=== PATIENT | female | born 1950 | race Caucasian/White ===

== ENCOUNTER 2016-06-22 13:13 | Inpatient (IN) | payer MEDICARE, MEDICAID ==
[~2016-06-22] VITALS: Ht 172.7 cm; Wt 73.9 kg
[~2016-06-22 13:13] MED LIST: ASPI1TAB69 PO; ATOR40TA16 PO; CARV12.52 PO; FURO40TA PO; LISI-515 PO; MIRA25TA PO; NAPR500T PO; POTA-163 PO
[2016-06-23] MEDS ORDERED: VITA10007 PO (08:57)
[2016-06-23] MEDS ORDERED: OMEG5CAP PO (08:57)
[2016-06-23] MEDS ORDERED: GLUC100017 PO (08:57)
[2016-06-23] MEDS ORDERED: CALC500T35 PO (08:57)
[2016-06-23] MEDS ORDERED: ZINC50TA PO (08:59)
[2016-06-23] MEDS ORDERED: MULT1TAB84 PO (08:59)
[2016-06-23] MEDS ORDERED: VITA10002 PO (08:59)
[2016-06-23] MEDS ORDERED: TYLE650T9 PO (08:59)
[2016-07-06] MEDS ORDERED: VANCOMYCIN HCL 1000 MG VIAL ONE (05:45)
[2016-07-06] MEDS ORDERED: SODIUM CHLOR 0.9% 250 ML INJ 250 ML ONE (05:45)
[2016-07-06 06:04] VITALS: BP 107/64; PULSE 58; RESP 20; TEMP 97.8; O2SAT 100
[2016-07-06] MEDS ORDERED: SODIUM CHLORID 0.9% 500 ML IV PRN (06:30)
[2016-07-06] MEDS ORDERED: INSULIN HUMAN REGULAR 1,000 UNITS/10 ML VIAL SQ PRN (06:30)
[2016-07-06] MEDS ORDERED: ceFAZolin 2 GM PREMIX 50 ML IV SCH (06:30)
[2016-07-06] MEDS ORDERED: METOPROLOL TARTRATE 25 MG TAB PO PRN (06:30)
[2016-07-06] MEDS ORDERED: POVIDONE IODINE 5% (ANTISEPSIS KIT) 4 APPLICATIONS EACH NARE PRN (06:30)
[2016-07-06] MEDS ORDERED: CHLORHEXIDINE GLUCONATE 2 % 1 PACK (2 CLOTHS) TOPICAL PRN (06:30)
[2016-07-06] MEDS ORDERED: VANCOMYCIN 1000 MG/NS 250 ML (for <70 kg) IV SCH ×2 (06:30)
[2016-07-06] MEDS ORDERED: LACTATED RINGER'S 1000 ML IV PRN (06:30)
[2016-07-06] MEDS ORDERED: GENTAMICIN SULFATE 80 MG/2 ML VIAL ONE (07:16)
[2016-07-06] MEDS ORDERED: EXPAREL PERI-ARTICULAR INJECTION (TOTAL VOL. 60 ML) P-ARTICULR SCH ×2 (07:30)
[2016-07-06] MEDS ORDERED: SODIUM CHLORIDE 0.9% IV SCH (07:30)
[2016-07-06] MEDS ORDERED: TRANEXAMIC ACID IV SCH (07:30)
[2016-07-06] MEDS ORDERED: HYDR-3366 PO (08:13)
[2016-07-06] MEDS ORDERED: WALKER/ADULT/FO1 MIS (08:13)
[2016-07-06] MEDS ORDERED: XARE10TA PO (08:13)
[2016-07-06] MEDS: LACTATED RINGER'S 1000 ML INJ 1,000 ML IV SCH ×2 (09:49→23:13)
--- NOTE | 2016-07-06 09:52 | PD.OP ---
cc: Curtis Carpenter MD Operative Report Date of Surgery: Jul 06, 2016 Preoperative Diagnosis: Severe right hip osteoarthritis Postoperative Diagnosis: Procedure: Right total hip arthroplasty via anterior approach Anesthesia: Gen. Surgeon: Curtis Carpenter Job Honer(s): MICK Rothman PA-C The surgical procedure was assisted by my physician food and beverage assistant manager. My P.A. presence was necessary throughout this case for the manipulation and positioning of the surgical extremity. My P.A. was assisting me throughout the duration of this procedure. The skill set of a physician food and beverage assistant manager was medically necessary to complete this procedure. During the surgical case the surgical instrument technician was working at the back table and the physician food and beverage assistant manager was directly assisting me. Operation and Findings: PLAN OF ACTIVITY Weight bear as tolerated. DRAINS: 7-mm CHANTEL drain. IMPLANTS USED DePuy Corail size [10] collared stem with a size [50] [place] Gription cup and a [32+8] ceramic Biolox ceramic head. DETAILS OF PROCEDURE: This patient has a long history of hip pain. Patient was found to have severe osteoarthritis. The patient had radiographic evidence of joint space narrowing with [id number] arthritis and osteophytes around the acetabulum as well as the femoral head. There was also some cystic changes. The patient failed conservative treatment with pain medications, anti-inflammatories, physical therapy, assistive devices including a cane, as well as therapeutic injection of the hip. Patient's hip arthritis was limiting his ability to ambulate and perform activities of daily living. The patient wished to proceed with surgery and informed consent was obtained. Operative site was marked. I discussed both posterior approach and anterior approach with the patient and decision was made for anterior approach. Patient was brought to OR and placed on OR table. IV sedation and general anesthesia was administered by anesthesiologist. Patient positioned on a Meera table and was given IV antibiotics. Time-out procedure was performed. The hip and thigh were prepped with alcohol followed by Hibiclens. The thigh was draped in the usual sterile fashion. Clean Air Suite was used for this procedure. The procedure began with a 5-inch incision over the anterolateral thigh. Subcutaneous tissue was dissected with Bovie. The fascia over the tensa fasciae latae was incised. Care was taken to avoid injury to the lateral femoral cutaneous nerve. The tensor muscle was retracted laterally. Sartorius was retracted medially. Retractors were now placed. The reflected head of the rectus is now elevated. A capsulotomy was performed over the anterior head capsule. Sutures were placed to help retract the capsule. At this point the femoral head and neck were identified. With soft tissue protected, oscillating saw was used to make a cut through the femoral neck, the femoral head was now removed. At this point attention was turned to preparation of the acetabulum. The labrum was excised. The acetabulum was sequentially reamed up to size [50]. A [place] cup was now placed. Fluoroscopy was used to aid in identification of appropriate version. Cup was fully impacted and found to have excellent fit. Hole eliminator was now placed. The liner was now impacted into the cup. At this point the hip was externally rotated. A hook was placed around the proximal femur. The capsule was released off the lateral and medial femur. The hip was now extended and adducted. Retractors were placed around the proximal femur to allow for exposure. A box osteotome was used to remove the lateral cortex of the femoral neck. A broach was used to help lateralize the prosthesis. Canal finder was used to create a path down the canal. Next, the canal was sequentially broached up to size [10]. This was found to be an excellent fit. Calcar planer was placed. A standard head was placed, and the hip was reduced. The hip was found to have excellent stability with good range of motion. The leg lengths were measured under fluoroscopy and found to be equal compared to preoperatively. Trial broach was removed. The Corail stem was opened. Stem was fully impacted into the proximal femur in appropriate version. The femoral head was placed. The hip was again reduced. Fluoroscopy confirmed excellent alignment of prosthesis. The wound was thoroughly irrigated and capsule was closed with #1 Vicryl. The fascia over the tensor fasciae muscle was closed with #1 Vicryl, subcutaneous tissue was closed with 3-0 Vicryl and the skin was closed with flor and Dermabond skin closure. The capsule layers were injected with a mixture of saline and bupivicaine. Dressings were applied. The patient was transferred to Recovery Room in stable condition. Curtis Carpenter MD Jul 06, 2016 09:52
[2016-07-06] MEDS ORDERED: MORPHINE SULFATE 4 MG/ML INJ IV PUSH PRN (10:00)
[2016-07-06] MEDS ORDERED: ACETAMINOPHEN/HYDROcodone 325 MG/10 MG TAB PO PRN (10:00)
[2016-07-06] MEDS ORDERED: Post-op Orders (for Pharmacy) MISC XX ONE (10:00)
[2016-07-06] MEDS ORDERED: ONDANSETRON HCL 4 MG/2 ML VIAL IVP PRN (10:00)
[2016-07-06] MEDS ORDERED: SODIUM CHLORIDE 0.9% FLUSH 5 ML FLUSH IVF PRN (10:00)
[2016-07-06] MEDS ORDERED: NALOXONE HCL 0.4 MG/ML AMP IV PRN (10:00)
[2016-07-06] MEDS ORDERED: DO NOT ADM ANY ANTICOAGULANT DRUGS PRN (10:15)
[2016-07-06] MEDS ORDERED: MIDAZOLAM HCL 2 MG/2 ML VIAL ONE (10:29)
[2016-07-06] MEDS ORDERED: fentaNYL CITRATE 250 MCG/5 ML AMP ONE ×2 (10:30→10:31)
[2016-07-06] MEDS ORDERED: TRANEXAMIC ACID INJ 1,000 MG in SODIUM CHLORIDE 0.9% INJ 100 ML IV ONE (10:45)
[2016-07-06] MEDS: KETOROLAC TROMETHAMINE 30 MG/ML (IVP) VIAL IV PUSH SCH ×2 (11:00→23:10)
--- NOTE | 2016-07-06 11:26 | RADRPT ---
EXAM DATE/TIME: 07/06/2016 10:43 [facility] COMPARISON: No previous studies available for comparison. INDICATIONS : Post op right hip surgery. MEDICAL HISTORY : None. SURGICAL HISTORY : None. ENCOUNTER: Initial ACUITY: 1 day PAIN SCORE: 0/10 LOCATION: Right hip and pelvis FINDINGS: 2 views of the right hip and pelvis. Right total hip prosthesis in place. Surgical drain and cutaneou s flor noted. No evidence of fracture. Alignment within normal limits. Prominent osteoarthritic fi ndings of left hip. CONCLUSION: Post operative appearance right total hip prosthesis. Anselmo Peterson MD on July 06, 2016 at 11:23 Board Certified Radiologist. This report was verified electronically.
[2016-07-06] MEDS ORDERED: PROPOFOL 200 MG/20 ML AMP IV ONE (12:00)
[2016-07-06] MEDS ORDERED: ONDANSETRON HCL 4 MG/2 ML VIAL IV PUSH ONE (12:00)
[2016-07-06] MEDS ORDERED: NEOSTIGMINE 3 MG/3 ML SYR IV ONE (12:00)
[2016-07-06] MEDS: ceFAZolin 2 GM PREMIX 50 ML IV SCH ×3 (12:00→23:10)
[2016-07-06] MEDS ORDERED: ePHEDrine/NS 25 MG/5 ML SYR IV ONE (12:00)
[2016-07-06] MEDS ORDERED: PHENYLEPH/NS 1000 MCG/10 ML SYR IV ONE (12:00)
[2016-07-06 13:15] VITALS: BP 116/57; PULSE 50; RESP 18; TEMP 96; O2SAT 99
--- NOTE | 2016-07-06 14:53 | RADRPT ---
EXAM DATE/TIME: 07/06/2016 08:00 [facility] COMPARISON: No previous studies available for comparison. INDICATIONS : Total right hip replacement. MEDICAL HISTORY : None. SURGICAL HISTORY : None. ENCOUNTER: Initial ACUITY: 1 day PAIN SCORE: Non-responsive. LOCATION: Right hip. FINDINGS: 2 intraoperative spot images of the right hip. Total hip prosthesis in place. CONCLUSION: 2 intraoperative spot images showing right total hip prosthesis. Anselmo Peterson MD on July 06, 2016 at 14:51 Board Certified Radiologist. This report was verified electronically.
[2016-07-06 15:24] VITALS: O2SAT 96
[2016-07-06] MEDS ORDERED: BENZOCAINE 6 MG/MENTHOL 10 MG LOZENGE BUCCAL PRN (15:45)
[2016-07-06 16:20] VITALS: BP 112/55; PULSE 63; RESP 18; TEMP 96.4; O2SAT 100
[2016-07-06] MEDS: VANCOMYCIN INJ 1,000 MG in SODIUM CHLOR 0.9% 250 ML INJ 250 ML IV SCH (17:38)
[2016-07-06 19:30] VITALS: BP 105/55; PULSE 62; RESP 16; TEMP 97.7; O2SAT 100
[2016-07-06] MEDS: ATORVASTATIN 40 MG TAB PO SCH (20:39)
[2016-07-06] MEDS: ASCORBIC ACID 500 MG TAB PO SCH (20:39)
[2016-07-06] MEDS: CARVEDILOL 12.5 MG TAB PO SCH (20:39)
[2016-07-06] MEDS: SODIUM CHLORIDE 0.9% FLUSH 5 ML FLUSH IVF SCH (20:59)
[2016-07-06] MEDS: ACETAMINOPHEN/HYDROcodone 325 MG/7.5 MG TAB PO PRN (23:10)
[2016-07-07] VITALS (8 sets, daily range): BP systolic 90–117; BP diastolic 51–60; PULSE 55–72; RESP 16–20; TEMP 96.6–98.7; O2SAT 93–100
[2016-07-07] MEDS: CHLORHEXIDINE GLUCONATE 4% SOLN 120 ML BTL TOPICAL SCH (03:08)
[2016-07-07] MEDS: VANCOMYCIN INJ 1,000 MG in SODIUM CHLOR 0.9% 250 ML INJ 250 ML IV SCH (05:35)
[2016-07-07 06:42] LABS: HEMATOCRIT 29.4 % (35.0-46.0); REVIEW FLAG FINAL
--- NOTE | 2016-07-07 08:06 | PD.ORT.PN ---
Subjective Subjective Remarks Pain controlled. Doing well overnight Objective Vitals Vital Signs Date Time Temp Pulse Resp B/P Pulse Ox O2 Delivery O2 Flow Rate FiO2 07/07/16 07:49 96 1.00 07/07/16 04:00 98.7 57 16 90/51 96 07/07/16 00:00 97.9 65 16 98/57 100 07/06/16 19:30 97.7 62 16 105/55 100 07/06/16 16:20 96.4 63 18 112/55 100 07/06/16 15:24 96 Nasal Cannula 2.00 07/06/16 13:15 96.0 50 18 116/57 99 07/06/16 13:06 Nasal Cannula 07/06/16 12:45 97.6 65 12 108/58 98 Nasal Cannula 2 07/06/16 12:00 15 07/06/16 12:00 97.6 53 12 121/60 98 Nasal Cannula 2 07/06/16 11:30 58 12 140/69 98 Nasal Cannula 2 07/06/16 11:00 72 12 145/75 98 Nasal Cannula 2 07/06/16 10:45 61 12 140/81 98 Nasal Cannula 4 07/06/16 10:30 54 12 117/60 97 Nasal Cannula 4 07/06/16 10:15 98.6 80 12 123/80 99 Nasal Cannula 4 I/O 07/06/16 07/06/16 07/06/16 07/07/16 07/07/16 07/07/16 07:00 15:00 23:00 07:00 15:00 23:00 Intake Total 1338 ml 1367 ml 925 ml Output Total 930 ml 715 ml 750 ml Balance 408 ml 652 ml 175 ml Intake Oral 720 ml 240 ml IV Total 338 ml 647 ml 685 ml Other 1000 ml Output Urine Total 310 ml 675 ml 700 ml Drainage Total 120 ml 40 ml 50 ml Estimated Blood Loss 500 ml # Bowel Movements 0 0 Result Diagram: 07/07/16 0540 Imaging Last 24 hours Impressions Hip and Pelvis X-Ray 07/06/16 0949 Signed Impressions: Service Date/Time: June 10:43 - CONCLUSION: Post operative appearance right total hip prosthesis. Anselmo Peterson MD Objective Remarks Right lower extremity: Clean dry dressings intact drain in place. Minimal swelling. She has intact sensation distally with good capillary refills and strong dorsal flexion plantar flexion of foot Assessment & Plan Assessment and Plan Right total hip arthroplasty anterior approach POD 1 Physical therapy twice daily weightbearing as tolerated Discontinue drain and begin dressing changesPrimapore over incision and Xeroform over drain site Lovenox Incentive spirometry SCDs Case management for rehabilitation placement on Sunday or Sunday Follow-up with Dr. Carpenter or PA in 2 weeks Jorge Luis Hernandez Jr. Jul 07, 2016 08:06
[2016-07-07] MEDS ORDERED: NON-FORMULARY DRUG (Mirabegron (Myrbetriq) 25 MG) PO SCH (09:00)
[2016-07-07] MEDS: SODIUM CHLORIDE 0.9% FLUSH 5 ML FLUSH IVF SCH ×2 (09:00→20:44)
[2016-07-07] MEDS ORDERED: PT OWN - MYRBETRIQ 25 MG PO SCH (09:00)
[2016-07-07] MEDS: ENOXAPARIN SODIUM 40 MG/0.4 ML SYRINGE SQ SCH (09:08)
[2016-07-07] MEDS: LISINOPRIL 20 MG TAB PO SCH (09:08)
[2016-07-07] MEDS: FUROSEMIDE 40 MG TAB PO SCH (09:08)
[2016-07-07] MEDS: CYANOCOBALAMIN 1,000 MCG TAB PO SCH (09:09)
[2016-07-07] MEDS: CARVEDILOL 12.5 MG TAB PO SCH ×2 (09:09→20:48)
[2016-07-07] MEDS: MULTIVITAMINS/MINERALS THERAPEUTIC TAB PO SCH (09:09)
[2016-07-07] MEDS: ASCORBIC ACID 500 MG TAB PO SCH ×2 (09:09→20:48)
[2016-07-07] MEDS: POTASSIUM CHLORIDE 20 MEQ CONTROLLED RELEASE TAB PO SCH (09:09)
[2016-07-07] MEDS: ACETAMINOPHEN/HYDROcodone 325 MG/7.5 MG TAB PO PRN ×3 (10:02→20:48)
[2016-07-07] MEDS: LACTATED RINGER'S 1000 ML INJ 1,000 ML IV SCH ×2 (10:49→23:19)
[2016-07-07] MEDS: KETOROLAC TROMETHAMINE 30 MG/ML (IVP) VIAL IV PUSH SCH ×2 (11:38→23:39)
[2016-07-07] MEDS ORDERED: SENNOSIDES 8.6 MG TAB PO ONE (19:45)
[2016-07-07] MEDS: MAGNESIUM HYDROXIDE SUSP 30 ML CUP PO SCH (20:48)
[2016-07-07] MEDS: ATORVASTATIN 40 MG TAB PO SCH (20:48)
[2016-07-07] MEDS: DOCUSATE SODIUM 100 MG CAP PO SCH (20:48)
[2016-07-08] VITALS: BP 114/65; PULSE 63; RESP 18; TEMP 98.5; O2SAT 95
[2016-07-08] MEDS: CHLORHEXIDINE GLUCONATE 4% SOLN 120 ML BTL TOPICAL SCH (02:37)
[2016-07-08] MEDS: FUROSEMIDE 40 MG TAB PO SCH (07:37)
[2016-07-08] MEDS: MAGNESIUM HYDROXIDE SUSP 30 ML CUP PO SCH ×2 (07:37→23:01)
[2016-07-08] MEDS: SODIUM CHLORIDE 0.9% FLUSH 5 ML FLUSH IVF SCH ×2 (07:37→23:01)
[2016-07-08] MEDS: SENNOSIDES 8.6 MG TAB PO SCH (07:37)
[2016-07-08 07:38] VITALS: BP 120/68; PULSE 68; RESP 16; TEMP 95.9; O2SAT 94
[2016-07-08] MEDS: CARVEDILOL 12.5 MG TAB PO SCH ×2 (07:38→23:01)
[2016-07-08] MEDS: DOCUSATE SODIUM 100 MG CAP PO SCH ×2 (07:38→23:01)
[2016-07-08] MEDS: POTASSIUM CHLORIDE 20 MEQ CONTROLLED RELEASE TAB PO SCH (07:38)
[2016-07-08] MEDS: ASCORBIC ACID 500 MG TAB PO SCH ×2 (07:38→23:00)
[2016-07-08] MEDS: MULTIVITAMINS/MINERALS THERAPEUTIC TAB PO SCH (07:38)
[2016-07-08] MEDS: LISINOPRIL 20 MG TAB PO SCH (07:38)
[2016-07-08] MEDS: ENOXAPARIN SODIUM 40 MG/0.4 ML SYRINGE SQ SCH (07:38)
[2016-07-08] MEDS: CYANOCOBALAMIN 1,000 MCG TAB PO SCH (07:38)
[2016-07-08] MEDS: LACTATED RINGER'S 1000 ML INJ 1,000 ML IV SCH ×2 (07:40→18:30)
--- NOTE | 2016-07-08 07:43 | PD.ORT.PN ---
Subjective Post Op Day #: 2 Subjective Remarks Patient OOB in chair with minimal pain to the right hip. Patient states she is ambulatory with assistance. Patient notes having a BM this morning. Objective Vitals Vital Signs Date Time Temp Pulse Resp B/P Pulse Ox O2 Delivery O2 Flow Rate FiO2 07/08/16 06:54 Room Air 07/08/16 00:00 98.5 63 18 114/65 95 07/07/16 21:05 97 07/07/16 20:00 98.2 72 20 117/59 93 07/07/16 16:00 97.1 55 16 110/53 95 07/07/16 12:00 96.6 57 16 100/58 97 07/07/16 11:05 16 07/07/16 08:20 Room Air 07/07/16 08:00 96.6 65 17 113/60 98 07/07/16 07:49 96 1.00 I/O 07/07/16 07/07/16 07/07/16 07/08/16 07/08/16 07/08/16 07:00 15:00 23:00 07:00 15:00 23:00 Intake Total 925 ml 1087 ml 780 ml 240 ml Output Total 750 ml 260 ml Balance 175 ml 827 ml 780 ml 240 ml Intake Oral 240 ml 480 ml 780 ml 240 ml IV Total 685 ml 607 ml Output Urine Total 700 ml 200 ml Drainage Total 50 ml 60 ml # Voids 2 1 # Bowel Movements 0 0 0 Result Diagram: 07/07/16 0540 Imaging Last 24 hours Impressions Hip and Pelvis X-Ray 07/06/16 0949 Signed Impressions: Service Date/Time: June 10:43 - CONCLUSION: Post operative appearance right total hip prosthesis. Anselmo Peterson MD Objective Remarks Right lower extremity: Dressings changed with moderate serosanguineous drainage. Incision approximated. Minimal swelling. She has intact sensation distally with good capillary refills and strong dorsal flexion plantar flexion of foot. Assessment & Plan Ortho Post Op Day #: 2 Problem List: Assessment and Plan POD #2: Right total hip arthroplasty anterior approach Physical therapy twice daily weightbearing as tolerated Daily dressing changes Lovenox Incentive spirometry SCDs Case management for rehabilitation placement on Sunday ([facility]) Follow-up with Dr. Carpenter or PA in 2 weeks Omari DayP Jul 08, 2016 07:43
[2016-07-08 10:41] VITALS: O2SAT 95
[2016-07-08 11:44] VITALS: BP 114/66; PULSE 58; RESP 16; TEMP 96.9; O2SAT 97
[2016-07-08] MEDS: ACETAMINOPHEN/HYDROcodone 325 MG/7.5 MG TAB PO PRN ×3 (13:50→23:00)
[2016-07-08 16:07] VITALS: BP 113/56; PULSE 56; RESP 16; TEMP 97.3; O2SAT 95
[2016-07-08 20:00] VITALS: BP 111/54; PULSE 57; RESP 20; TEMP 96.8; O2SAT 97
[2016-07-08] MEDS: ATORVASTATIN 40 MG TAB PO SCH (23:00)
[2016-07-09] VITALS: BP 131/61; PULSE 56; RESP 18; TEMP 97.4; O2SAT 94
[2016-07-09] MEDS: MAGNESIUM HYDROXIDE SUSP 30 ML CUP PO SCH (07:11)
[2016-07-09] MEDS: LACTATED RINGER'S 1000 ML INJ 1,000 ML IV SCH (07:11)
[2016-07-09] MEDS: SODIUM CHLORIDE 0.9% FLUSH 5 ML FLUSH IVF SCH (07:11)
[2016-07-09] MEDS: CYANOCOBALAMIN 1,000 MCG TAB PO SCH (07:14)
[2016-07-09] MEDS: ASCORBIC ACID 500 MG TAB PO SCH (07:14)
[2016-07-09] MEDS: MULTIVITAMINS/MINERALS THERAPEUTIC TAB PO SCH (07:14)
[2016-07-09] MEDS: ACETAMINOPHEN/HYDROcodone 325 MG/7.5 MG TAB PO PRN ×2 (07:15→11:59)
[2016-07-09] MEDS: CARVEDILOL 12.5 MG TAB PO SCH (07:15)
[2016-07-09] MEDS: LISINOPRIL 20 MG TAB PO SCH (07:15)
[2016-07-09] MEDS: POTASSIUM CHLORIDE 20 MEQ CONTROLLED RELEASE TAB PO SCH (07:15)
[2016-07-09] MEDS: SENNOSIDES 8.6 MG TAB PO SCH (07:15)
[2016-07-09] MEDS: FUROSEMIDE 40 MG TAB PO SCH (07:15)
[2016-07-09] MEDS: ENOXAPARIN SODIUM 40 MG/0.4 ML SYRINGE SQ SCH (07:15)
[2016-07-09] MEDS: DOCUSATE SODIUM 100 MG CAP PO SCH (07:16)
[2016-07-09 08:00] VITALS: BP 109/60; PULSE 70; RESP 16; TEMP 95.6; O2SAT 98
--- NOTE | 2016-07-09 11:22 | PD.ORT.PN ---
Subjective Post Op Day #: 3 Subjective Remarks Patient OOB in chair with minimal pain to the right hip. Patient is ready for discharge to rehab. Objective Vitals Vital Signs Date Time Temp Pulse Resp B/P Pulse Ox O2 Delivery O2 Flow Rate FiO2 07/09/16 08:00 95.6 70 16 109/60 98 07/09/16 00:00 97.4 56 18 131/61 94 07/08/16 20:00 96.8 57 20 111/54 97 07/08/16 16:07 97.3 56 16 113/56 95 07/08/16 11:44 96.9 58 16 114/66 97 I/O 07/08/16 07/08/16 07/08/16 07/09/16 07/09/16 07/09/16 07:00 15:00 23:00 07:00 15:00 23:00 Intake Total 240 ml 720 ml 780 ml 240 ml Balance 240 ml 720 ml 780 ml 240 ml Intake Oral 240 ml 720 ml 780 ml 240 ml # Voids 1 3 1 1 # Bowel Movements 0 3 0 0 Result Diagram: 07/07/16 0540 Imaging Last 24 hours Impressions Hip and Pelvis X-Ray 07/06/16 0949 Signed Impressions: Service Date/Time: June 10:43 - CONCLUSION: Post operative appearance right total hip prosthesis. Anselmo Peterson MD Objective Remarks Right lower extremity: Dressings C/D/I. Minimal swelling. She has intact sensation distally with good capillary refills and strong dorsal flexion plantar flexion of foot. + NVI Assessment & Plan Ortho Post Op Day #: 3 Problem List: Assessment and Plan POD #3: Right total hip arthroplasty anterior approach Physical therapy twice daily weightbearing as tolerated Daily dressing changes Lovenox Incentive spirometry SCDs Patient will be discharged today to [facility] Follow-up with Dr. Carpenter or PA in 2 weeks Omari Day Jul 09, 2016 11:22
[2016-07-09 12:06] VITALS: BP 112/60; PULSE 59; RESP 16; TEMP 96.6; O2SAT 100
--- NOTE | 2016-07-24 09:02 | HHI.DS ---
Discharge Summary Admission Date Jul 06, 2016 at 05:13 Discharge Date: Jul 09, 2016 Admitting Diagnosis right hip osteoarthritis Diagnosis: (1) Status post total hip replacement, right Diagnosis: Principal Procedures right total hip arthroplasty with anterior approach Brief History PE at Discharge Right lower extremity: Dressings C/D/I. Minimal swelling. She has intact sensation distally with good capillary refills and strong dorsal flexion plantar flexion of foot. + NVI Hospital Course the patient was admitted from an outpatient basis for elective right total hip arthroplasty. She tolerated procedure well and was admitted to [address] [place] [address]. She was out of bed on postoperative day 1 with physical therapy and tolerating physical therapy well. Her drain was discontinued on postoperative day 2. Her dressing changes were also initiated on postoperative day 2. She is weightbearing as tolerated including living with therapy. She is hemodynamically stable and fit for discharge to rehabilitation. She'll be weightbearing as tolerated and follow up with Dr. Carpenter or his PA in 2 weeks Pt Condition on Discharge: Good Discharge Disposition: Discharge to SNF Discharge Instructions Diet Instructions: As Tolerated, No Restrictions Activities You Can Perform: Weight Bearing as Lisandra Follow up Referrals: Orthopedics - 07/20/16 @ [facility] with Curtis Carpenter MD SNF/[facility]/ with [facility] New Medications: Hydrocodone-Acetaminophen ([place]) 10-325 Mg Tab 1 TAB PO Q4H PRN PAIN #60 Ref 0 TAB Rivaroxaban (Xarelto) 10 Mg Tab 10 MG PO DAILY Blood Clot Prevention #14 Ref 0 TAB Walker/Adult/Folding (Walker/Adult/Folding) 1 Mis Mis 1 EA .ROUTE DIRECTED #1 Ref 0 EA Continued Medications: Acetaminophen (Tylenol 8 Hour Arthritis) 650 Mg Tab 1 TAB PO DIRECTED Ascorbic Acid (Vitamin C) 1,000 Mg Tab 1000 MG PO BID Nutritional Supplement Ref 0 TAB Aspirin (Aspirin) 81 Mg Tabdr 81 MG PO HS TAB Atorvastatin (Atorvastatin) 40 Mg Tab 40 MG PO HS Cholesterol Management #30 Ref 0 TAB Carvedilol (Carvedilol) 12.5 Mg Tab 12.5 MG PO BID #60 Ref 0 TAB Cyanocobalamin (Vitamin B-12) 1,000 Mcg Tab 1000 MCG PO DAILY Nutritional Supplement #1 Ref 0 BOTTLE Furosemide (Furosemide) 40 Mg Tab 40 MG PO DAILY #30 Ref 0 TAB Glucosamine (Glucosamine) 1,000 Mg Cap 1000 MG PO BID Herbal Supplements Ref 0 CAP Lisinopril (Lisinopril) 20 Mg Tab 20 MG PO DAILY #30 Ref 0 TAB Mirabegron (Myrbetriq) 25 Mg Tab 25 MG PO DAILY Urinary Symptom Managemen #30 Ref 0 TAB Multiple Vitamins W/ Minerals (Multivitamin Adults) 1 Tab 1 TAB PO DAILY Nutritional Supplement Ref 0 TAB Oyster Shell (Calcium) 500 Mg Tab Unknown Dose PO DAILY Potassium Chloride ER (Potassium Chloride ER) 20 Meq Tab 20 MEQ PO DAILY Electrolyte Replacement #60 Ref 0 TAB Zinc (Zinc) 50 Mg Tab 50 MG PO DAILY Nutritional Supplement Ref 0 TAB Discontinued Medications: Naproxen (Naproxen) 500 Mg Tab 500 MG PO DAILY #60 Ref 0 TAB Seferino Aguiar Jul 24, 2016 09:02
== END 2016-07-09 14:12 | DRG 470 ==
LOC: HSDI 07-06 05:13 → EDUNIT# 07-06 07:00 → N06A 07-06 13:10
PROVIDERS: ADMIT Orthopaedic Surgery Orthopaedic Trauma; ATTEND Orthopaedic Surgery Orthopaedic Trauma
PROC: 0SR904A Replacement of Right Hip Joint with Ceramic on Polyethylene Synthetic Substitute, Uncemented, Open Approach (ICD-10-PCS; principal; 2016-07-06 07:35)
DX: M16.11 Unilateral primary osteoarthritis, right hip (principal); I10 Essential (primary) hypertension; E78.5 Hyperlipidemia, unspecified; I25.10 Atherosclerotic heart disease of native coronary artery without angina pectoris; Z95.1 Presence of aortocoronary bypass graft
CPT/HCPCS: 73501; 73502; 76000; 85014; 85018; 86850; 86900; 86901; 99283; C1776; C9290; J0690; J1580; J1650; J1885; J2250; J2370; J2405; J2710; J3010; J3370; J7050; J7120; L1830

== ENCOUNTER → 2016-06-23 | Outpatient (CLI) | payer MEDICARE, MEDICAID ==
[~2016-06-23] MED LIST changes: +ACET-929 PO; +ACET650T67 PO; +ASCO100016 PO; +CALC500T35 PO; +CHEL50TA PO; +ENOX40IN SQ; +GLUC100017 PO; +HYDR-3366 PO; +HYDR-3583 PO; +MULT1TAB46 PO; +MULT1TAB84 PO; +OMEG12002 PO; +OMEG5CAP PO; +TYLE650T9 PO; +VITA10002 PO; +VITA10007 PO; +VITA2000 PO; +WALKER WHEELS/F1 MIS; +WALKER/ADULT/FO1 MIS; +XARE10TA PO; +ZINC50TA PO
[2016-06-23 09:09] LABS: AUTOMATED NEUTROPHIL # 4.6 TH/MM3 (1.8-7.7); BASOPHIL # 0.1 TH/MM3 (0-0.2); BASOPHIL % 0.8 % (0.0-2.0); EOSINOPHIL # 0.1 TH/MM3 (0-0.4); EOSINOPHIL % 1.4 % (0.0-4.0); HEMATOCRIT 43.6 % (35.0-46.0); HEMO FLAGS DIFF FINAL; LYMPH % 26.1 % (9.0-44.0); LYMPHOCYTE # 1.9 TH/MM3 (1.0-4.8); MEAN CELL VOLUME 97.6 FL (80.0-100.0); MEAN CORPUSCULAR HEMOGLOBIN 32.4 PG (27.0-34.0); MEAN CORPUSCULAR HGB CONC 33.2 % (32.0-36.0); MONO % 7.7 % (0.0-8.0); PLATELET COUNT 208 TH/MM3 (150-450); RED BLOOD COUNT 4.46 MIL/MM3 (4.00-5.30); RED CELL DISTRIBUTION WIDTH 14.2 % (11.6-17.2); WHITE BLOOD COUNT 7.2 TH/MM3 (4.0-11.0)
[2016-06-23 09:10] LABS: PROTHROMBIN TIME - PATIENT 10.5 SEC (9.8-11.6)
[2016-06-23 09:35] LABS: BICARBONATE 27.3 MEQ/L (21.0-32.0); POTASSIUM 4.4 MEQ/L (3.5-5.1)
[2016-06-23 11:17] LABS: BLOOD, URINE NEG (NEG); COMMENT (UR) CATH-CULT NOT IND; CULTURE IF INDICATED CATH CULTURE NOT IND; GLUCOSE,URINE NEG (NEG); HYALINE CAST, URINE 6 /lpf (RARE); KETONE, URINE NEG (NEG); MUCUS URINE FEW /lpf (OCC); NITRITE,URINE NEG (NEG); URINE COLOR LIGHT-YELLOW (YELLW/STRAW)
--- NOTE | 2016-06-23 11:53 | RADRPT ---
EXAM DATE/TIME: 06/23/2016 11:36 [facility] COMPARISON: No previous studies available for comparison. INDICATIONS : Evaluate for pneumonia, pnuemothorax, or communicable disease. Pre op for hip replacement. MEDICAL HISTORY : Hypertension. SURGICAL HISTORY : CABG. ENCOUNTER: Initial ACUITY: 1 day PAIN SCORE: 0/10 LOCATION: Bilateral chest FINDINGS: Post surgical changes from prior CABG are noted. Heart remains normal in size. Lungs hyperinflated but clear without evidence of significant congestion or airspace disease. Osseous structures are intact without evidence of acute abnormality. CONCLUSION: Status post CABG. Hyperinflated lungs suggesting mild COPD. No evidence of acute process. Jayme Daly MD on June 23, 2016 at 11:50 Board Certified Radiologist. This report was verified electronically.
--- NOTE | 2016-06-23 14:57 | EKG ---
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
== END ==
LOC: CPRE 08:33
PROVIDERS: ATTEND Orthopaedic Surgery Orthopaedic Trauma
DX: M79.609 Pain in unspecified limb (principal); R94.31 Abnormal electrocardiogram [ECG] [EKG]; Z96.60 Presence of unspecified orthopedic joint implant
CPT/HCPCS: 36415; 71020; 80048; 81001; 85025; 85610; 85730; 93005

== ENCOUNTER 2016-07-09 21:53 | Emergency (ER) | payer MEDICARE, MEDICAID ==
[~2016-07-09] VITALS: Ht 172.7 cm; Wt 70.0 kg
[~2016-07-09 21:53] MED LIST changes: -ACET-929 PO; -ACET650T67 PO; -ASCO100016 PO; -CHEL50TA PO; -ENOX40IN SQ; -HYDR-3583 PO; -MULT1TAB46 PO; -NAPR500T PO; -OMEG12002 PO; -VITA2000 PO; -WALKER WHEELS/F1 MIS
[2016-07-09 21:59] VITALS: BP 192/88; PULSE 60; RESP 18; TEMP 98.7; O2SAT 99
--- NOTE | 2016-07-09 22:06 | PD ---
HPI Chief Complaint: Wound/Suture/Staple Re-Check Time Seen by Provider: 22:02 Travel History International Travel<30 days: No Contact w/Intl Traveler<30days: No Traveled to known affect area: No History of Present Illness HPI 65-year-old female here with complaint of poor care at her care home facility. Patient was just discharged from our inpatient facility after right total hip by Dr. Carpenter several days ago. She's been rehabilitating well. He recommended that she go to rehabilitation because she is a and doesn't have anybody at home with her 24 7. Patient went to [facility] and states that she is been very upset with the care there, perceives it to be subpar. She elicits numerous complaints about the care there. Therefore she called 911 and requested to come back here. Patient does not want to go back to his care home facility at this time. States that her house is been equipped with equipment including potty chair, he really, etc. and as long she has some home health that can come on to some physical therapy she would prefer to go home. She notes that her wound has been healing well and she is been able to ambulate with walker. Patient notes a scant amount of bloody, serous and when his drainage from her wound which is stable. PFSH Past Medical History Hx Anticoagulant Therapy: No Cancer: No Cardiovascular Problems: Yes (BIPASS SURGERY, CHF) Chemotherapy: No Cerebrovascular Accident: No Diabetes: No Endocrine: No Genitourinary: No Hepatitis: No Hiatal Hernia: No Immune Disorder: No Musculoskeletal: Yes (OSTEOARTHRITIS) Neurologic: No Psychiatric: No Respiratory: No Thyroid Disease: No ?: Not Past Surgical History Abdominal Surgery: Yes Body Medical Devices: STERNAL WIRES Cardiac Surgery: Yes (CABGX5 2009) Endocrine Surgery: No Gynecologic Surgery: Yes (HYSTERECTOMY, OVARY REMOVED) Oral Surgery: Yes (TONSILLECTOMY/ADENOIDECTOMY) Thoracic Surgery: No Social History Tobacco Use: No Substance Use: No Allergies-Medications (Allergen,Severity, Reaction): Coded Allergies: Sulfa (Verified Allergy, Severe, Itching, 07/06/16) Reported Meds & Prescriptions Reported Meds & Active Scripts Active Xarelto (Rivaroxaban) 10 Mg Tab 10 Mg PO DAILY [place] (Hydrocodone-Acetaminophen) 10-325 Mg Tab 1 Tab PO Q4H PRN Walker/Adult/Folding (Device) 1 Mis Mis 1 Ea .ROUTE DIRECTED Reported Tylenol 8 Hour Arthritis (Acetaminophen) 650 Mg Tab 1 Tab PO DIRECTED Multivitamin Adults (Multiple Vitamins W/ Minerals) 1 Tab 1 Tab PO DAILY Vitamin B-12 (Cyanocobalamin) 1,000 Mcg Tab 1,000 Mcg PO DAILY Zinc 50 Mg Tab 50 Mg PO DAILY Calcium (Oyster Shell) 500 Mg Tab Unknown Dose PO DAILY Vitamin C (Ascorbic Acid) 1,000 Mg Tab 1,000 Mg PO BID Glucosamine (Glucosamine Sulfate) 1,000 Mg Cap 1,000 Mg PO BID Fish Oil 1200 mg (Wells-3 Fatty Acids) 1 Cap Cap 1 Cap PO DAILY Aspirin 81 Mg Tabdr 81 Mg PO HS Atorvastatin (Atorvastatin Calcium) 40 Mg Tab 40 Mg PO HS Myrbetriq (Mirabegron) 25 Mg Tab 25 Mg PO DAILY Carvedilol 12.5 Mg Tab 12.5 Mg PO BID Lisinopril 20 Mg Tab 20 Mg PO DAILY Furosemide 40 Mg Tab 40 Mg PO DAILY Potassium Chloride ER (Potassium Chloride) 20 Meq Tab 20 Meq PO DAILY Review of Systems Except as stated in HPI: all other systems reviewed are Neg Physical Exam Narrative GENERAL: Well-appearing cantankerous female in no acute distress SKIN: Focused skin assessment warm/dry. HEAD: Normocephalic. EYES: No scleral icterus. No injection or drainage. ENT: No nasal bleeding or discharge. Mucous membranes pink and moist. CARDIOVASCULAR: Regular rate and rhythm. RESPIRATORY: No accessory muscle use. MUSCULOSKELETAL: Right hip incision clean dry and intact. Minimal serosanguineous drainage on bandage NEUROLOGICAL: Awake and alert. Normal speech. PSYCHIATRIC: Appropriate mood and affect; insight and judgment normal. MDM Medical Decision Making Medical Screen Exam Complete: Yes Emergency Medical Condition: Yes Medical Record Reviewed: Yes Differential Diagnosis 65-year-old female here with complaint of needing home health essentially patient does not like the care she is been receiving at her care home facility. Patient is well-appearing, her wound looks excellent. She really has no complaints other than receiving inadequate care at her care home facility. At this time she wants to go home with home health which I think is reasonable she's been able to get up and ambulate independently. We'll consult case management to assist with home health. Patient has family she can call to be there tonight with her. Narrative Course See above Diagnosis Primary Impression: Status post total hip replacement, right Referrals: Curtis Carpenter MD As scheduled Additional Instructions: Home health as discussed with case management. Med/Other Pt SpecificInfo: No Change to Meds Disposition: 01 DISCHARGE HOME Condition: Stable Dina Pineda MD Jul 09, 2016 22:06
--- NOTE | 2016-07-09 22:06 | HHI.FF ---
Face to Face Verification Diagnosis: (1) Status post total hip replacement, right Physical Therapy Order: Evaluate and Treat, Improve ambulation, Strength and gait training I have seen patient Sarah Aparicio on 07/09/16. My clinical findings support the need for the requested home health care services because: Limited ability to care for self High risk of falls I certify that my clinical findings support that this patient is homebound because: Post-op weakness Dina Pineda MD Jul 09, 2016 22:06
[2016-07-09 22:18] VITALS: BP 192/88; PULSE 60; RESP 18; TEMP 98.7
[2016-07-09] MEDS ORDERED: ACETAMINOPHEN/HYDROcodone 325 MG/5 MG TAB PO ONE (22:45)
[2016-07-09 22:59] VITALS: BP 147/67; PULSE 57; RESP 18
[2016-07-10 07:56] VITALS: BP 143/69; PULSE 60; RESP 18
== END 2016-07-10 09:23 | disposition home or self-care (01) ==
LOC: NEPE 21:53 → NEPA 07-10 09:23
DX: Z03.89 Encounter for observation for other suspected diseases and conditions ruled out (principal); Z96.641 Presence of right artificial hip joint
CPT/HCPCS: 99283

== ENCOUNTER 2016-09-11 14:21 | Inpatient (IN) | payer MEDICARE, MEDICAID ==
[~2016-09-11] VITALS: Ht 172.7 cm; Wt 76.3 kg
[~2016-09-11 14:21] MED LIST changes: -ASPI1TAB69 PO; -HYDR-3366 PO; -MULT1TAB84 PO; -OMEG5CAP PO; -TYLE650T9 PO; -VITA10007 PO; -WALKER/ADULT/FO1 MIS; -XARE10TA PO; -ZINC50TA PO
[2016-09-14] MEDS ORDERED: ACET650T67 PO (10:51)
[2016-09-14] MEDS ORDERED: CHEL50TA PO (10:51)
[2016-09-14] MEDS ORDERED: ASCO100016 PO (10:51)
[2016-09-14] MEDS ORDERED: OMEG12002 PO (10:51)
[2016-09-14] MEDS ORDERED: ACET-929 PO (10:51)
[2016-09-14] MEDS ORDERED: MULT1TAB46 PO (10:51)
[2016-09-21] MEDS: LISINOPRIL 20 MG TAB PO SCH (04:00)
[2016-09-21] MEDS: FUROSEMIDE 40 MG TAB PO SCH (04:00)
[2016-09-21] MEDS: CARVEDILOL 12.5 MG TAB PO SCH ×2 (04:00→21:08)
[2016-09-21] MEDS ORDERED: CHLORHEXIDINE GLUCONATE 4% SOLN 120 ML BTL TOPICAL SCH (05:45)
[2016-09-21] MEDS ORDERED: METOPROLOL TARTRATE 25 MG TAB PO PRN (05:45)
[2016-09-21] MEDS ORDERED: SODIUM CHLORIDE 0.9% IV SCH (05:45)
[2016-09-21] MEDS ORDERED: ceFAZolin 2 GM PREMIX 50 ML IV SCH (05:45)
[2016-09-21] MEDS ORDERED: SODIUM CHLORID 0.9% 500 ML IV PRN (05:45)
[2016-09-21] MEDS ORDERED: POVIDONE IODINE 5% (ANTISEPSIS KIT) 4 APPLICATIONS EACH NARE PRN (05:45)
[2016-09-21] MEDS ORDERED: CHLORHEXIDINE GLUCONATE 2 % 1 PACK (2 CLOTHS) TOPICAL PRN (05:45)
[2016-09-21] MEDS ORDERED: TRANEXAMIC ACID IV SCH (05:45)
[2016-09-21] MEDS ORDERED: EXPAREL PERI-ARTICULAR INJECTION (TOTAL VOL. 60 ML) P-ARTICULR SCH ×2 (05:45)
[2016-09-21] MEDS ORDERED: LACTATED RINGER'S 1000 ML IV PRN (05:45)
[2016-09-21] MEDS ORDERED: INSULIN HUMAN REGULAR 1,000 UNITS/10 ML VIAL SQ PRN (05:45)
[2016-09-21] MEDS ORDERED: VANCOMYCIN 1000 MG/NS 250 ML (for <70 kg) IV SCH ×2 (05:45)
[2016-09-21 05:54] VITALS: BP 139/73; PULSE 59; RESP 18; TEMP 98.1; O2SAT 98
[2016-09-21 06:13] LABS: BLOOD, URINE NEG (NEG); COMMENT (UR) CATH-CULT NOT IND; CULTURE IF INDICATED CATH CULTURE NOT IND; GLUCOSE,URINE NEG (NEG); KETONE, URINE NEG (NEG); MUCUS URINE FEW /lpf (OCC); NITRITE,URINE NEG (NEG); SQUAMOUS EPITHELIAL CELL URINE <1 /hpf (0-5); URINE COLOR LIGHT-YELLOW (YELLW/STRAW)
[2016-09-21] MEDS ORDERED: GENTAMICIN SULFATE 80 MG/2 ML VIAL ONE (06:16)
[2016-09-21] MEDS ORDERED: ACETAMINOPHEN 1000 MG/100 ML VIAL IV ONE (08:33)
--- NOTE | 2016-09-21 08:42 | PD.OP ---
cc: Curtis Carpenter MD Operative Report Date of Surgery: Sep 21, 2016 Preoperative Diagnosis: Severe left hip osteoarthritis Postoperative Diagnosis: Procedure: Left total hip arthroplasty Anesthesia: Gen. Surgeon: Curtis Carpenter Rib Cutter(s): Siddhartha Hernandez PA-C The surgical procedure was assisted by my physician assistant speech language pathologist. My P.A. presence was necessary throughout this case for the manipulation and positioning of the surgical extremity. My P.A. was assisting me throughout the duration of this procedure. The skill set of a physician assistant speech language pathologist was medically necessary to complete this procedure. During the surgical case the denture technician was working at the back table and the physician assistant speech language pathologist was directly assisting me. Operation and Findings: PLAN OF ACTIVITY Weight bear as tolerated. DRAINS: 7-mm CHANTEL drain. IMPLANTS USED DePuy Corail size [11] collared stem with a size [50] [place] Gription cup, 50/32 +4 polyethylene liner, and a [32+5] ceramic Biolox ceramic head. DETAILS OF PROCEDURE: This patient has a long history of hip pain. Patient was found to have severe osteoarthritis. The patient had radiographic evidence of joint space narrowing with [id number] arthritis and osteophytes around the acetabulum as well as the femoral head. There was also some cystic changes. The patient failed conservative treatment with pain medications, anti-inflammatories, physical therapy, assistive devices including a cane, as well as therapeutic injection of the hip. Patient's hip arthritis was limiting his ability to ambulate and perform activities of daily living. The patient wished to proceed with surgery and informed consent was obtained. Operative site was marked. I discussed both posterior approach and anterior approach with the patient and decision was made for anterior approach. Patient was brought to OR and placed on OR table. IV sedation and general anesthesia was administered by anesthesiologist. Patient positioned on a Meera table and was given IV antibiotics. Time-out procedure was performed. The hip and thigh were prepped with alcohol followed by Hibiclens. The thigh was draped in the usual sterile fashion. Clean Air Suite was used for this procedure. The procedure began with a 5-inch incision over the anterolateral thigh. Subcutaneous tissue was dissected with Bovie. The fascia over the tensa fasciae latae was incised. Care was taken to avoid injury to the lateral femoral cutaneous nerve. The tensor muscle was retracted laterally. Sartorius was retracted medially. Retractors were now placed. The reflected head of the rectus is now elevated. A capsulotomy was performed over the anterior head capsule. Sutures were placed to help retract the capsule. At this point the femoral head and neck were identified. With soft tissue protected, oscillating saw was used to make a cut through the femoral neck, the femoral head was now removed. At this point attention was turned to preparation of the acetabulum. The labrum was excised. The acetabulum was sequentially reamed up to size [50]. A [place] cup was now placed. Fluoroscopy was used to aid in identification of appropriate version. Cup was fully impacted and found to have excellent fit. Hole eliminator was now placed. The liner was now impacted into the cup. At this point the hip was externally rotated. A hook was placed around the proximal femur. The capsule was released off the lateral and medial femur. The hip was now extended and adducted. Retractors were placed around the proximal femur to allow for exposure. A box osteotome was used to remove the lateral cortex of the femoral neck. A broach was used to help lateralize the prosthesis. Canal finder was used to create a path down the canal. Next, the canal was sequentially broached up to size [11]. This was found to be an excellent fit. Calcar planer was placed. A standard head was placed, and the hip was reduced. The hip was found to have excellent stability with good range of motion. The leg lengths were measured under fluoroscopy and found to be equal compared to preoperatively. Trial broach was removed. The Corail stem was opened. Stem was fully impacted into the proximal femur in appropriate version. The femoral head was placed. The hip was again reduced. Fluoroscopy confirmed excellent alignment of prosthesis. The wound was thoroughly irrigated and capsule was closed with #1 Vicryl. The fascia over the tensor fasciae muscle was closed with #1 Vicryl, subcutaneous tissue was closed with 3-0 Vicryl and the skin was closed with flor and Dermabond skin closure. The capsule layers were injected with a mixture of saline and bupivicaine. Dressings were applied. The patient was transferred to Recovery Room in stable condition. Curtis Carpenter MD Sep 21, 2016 08:42
[2016-09-21] MEDS ORDERED: NALOXONE HCL 0.4 MG/ML AMP IV PRN (08:45)
[2016-09-21] MEDS ORDERED: ONDANSETRON HCL 4 MG/2 ML VIAL IVP PRN (08:45)
[2016-09-21] MEDS ORDERED: MORPHINE SULFATE 4 MG/ML INJ IV PUSH PRN (08:45)
[2016-09-21] MEDS ORDERED: SODIUM CHLORIDE 0.9% FLUSH 5 ML FLUSH IVF PRN (08:45)
[2016-09-21] MEDS ORDERED: ACETAMINOPHEN/HYDROcodone 325 MG/10 MG TAB PO PRN (08:45)
[2016-09-21] MEDS: CYANOCOBALAMIN 1,000 MCG TAB PO SCH (09:00)
[2016-09-21] MEDS: SODIUM CHLORIDE 0.9% FLUSH 5 ML FLUSH IVF SCH ×2 (09:00→21:00)
[2016-09-21] MEDS ORDERED: DO NOT ADM ANY ANTICOAGULANT DRUGS PRN (09:00)
[2016-09-21] MEDS: POTASSIUM CHLORIDE 20 MEQ CONTROLLED RELEASE TAB PO SCH (09:00)
[2016-09-21] MEDS ORDERED: Post-op Orders (for Pharmacy) MISC XX ONE (09:08)
[2016-09-21] MEDS ORDERED: MIDAZOLAM HCL 2 MG/2 ML VIAL ONE (09:26)
[2016-09-21] MEDS ORDERED: fentaNYL CITRATE 250 MCG/5 ML AMP ONE (09:27)
[2016-09-21] MEDS ORDERED: *morphine SULFATE 8 MG/ML PERIprocedure ONLY ONE (09:59)
[2016-09-21] MEDS ORDERED: TRANEXAMIC ACID INJ 1,000 MG in SODIUM CHLORIDE 0.9% INJ 100 ML IV ONE (10:00)
[2016-09-21] MEDS: LACTATED RINGER'S 1000 ML INJ 1,000 ML IV SCH ×2 (10:00→21:07)
--- NOTE | 2016-09-21 10:01 | RADRPT ---
EXAM DATE/TIME: 09/21/2016 09:36 [facility] COMPARISON: No previous studies available for comparison. INDICATIONS : Pot op left hip surgery. MEDICAL HISTORY : None. SURGICAL HISTORY : Rt hip surgery 06/2016 ENCOUNTER: Initial ACUITY: 1 day PAIN SCORE: 3/10 LOCATION: Left hip and pelvis FINDINGS: The patient is status post left total hip replacement with prosthesis in good position. Previous rig ht total hip replacement has been performed also. CONCLUSION: 1. Status post left total hip replacement with prosthesis in good position. Hector Garcia MD on September 21, 2016 at 9:54 Board Certified Radiologist. This report was verified electronically.
[2016-09-21] MEDS ORDERED: VITA2000 PO (11:54)
[2016-09-21] MEDS ORDERED: XARE10TA PO (11:54)
[2016-09-21] MEDS ORDERED: WALKER WHEELS/F1 MIS (11:54)
[2016-09-21] MEDS ORDERED: HYDR-3583 PO (11:54)
--- NOTE | 2016-09-21 11:56 | HHI.FF ---
Face to Face Verification Diagnosis: (1) Status post total hip replacement, left Physical Therapy Gait training, Safety evaluation Hip: Total hip, Protocol: Left, Posterior hip precautions Left LE Weight Bearing: WB as tolerated S/P Spinal Fusion: Gait training with walker Nursing Dressing Changes: Daily dressing change, Xeroform (begin adding Xeroform starting 10/01/2016), Coverderm/Primapore I have seen patient Sarah Aparicio on 09/21/16. My clinical findings support the need for the requested home health care services because: Limited ability to care for self I certify that my clinical findings support that this patient is homebound because: Post-op weakness Jorge Luis Hernandez Jr. Sep 21, 2016 11:56
[2016-09-21] MEDS ORDERED: LACTATED RINGER'S 1000 ML INJ 1,000 ML IV ONE (12:00)
[2016-09-21] MEDS ORDERED: PHENYLEPH/NS 1000 MCG/10 ML SYR IV ONE (12:00)
[2016-09-21] MEDS ORDERED: PROPOFOL 200 MG/20 ML AMP IV ONE (12:00)
[2016-09-21] MEDS ORDERED: ePHEDrine/NS 25 MG/5 ML SYR IV ONE (12:00)
[2016-09-21] MEDS: TOLTERODINE TARTRATE 2 MG CAP LA PO SCH (12:00)
[2016-09-21] MEDS ORDERED: NEOSTIGMINE 3 MG/3 ML SYR IV ONE (12:00)
[2016-09-21] MEDS ORDERED: ONDANSETRON HCL 4 MG/2 ML VIAL IV PUSH ONE (12:00)
[2016-09-21] MEDS: ceFAZolin 2 GM PREMIX 50 ML IV SCH ×3 (13:40→23:51)
[2016-09-21] MEDS: KETOROLAC TROMETHAMINE 30 MG/ML (IVP) VIAL IV PUSH SCH ×2 (13:40→23:51)
[2016-09-21 14:00] VITALS: BP 117/68; PULSE 86; RESP 16; TEMP 97; O2SAT 97
--- NOTE | 2016-09-21 15:13 | RADRPT ---
EXAM DATE/TIME: 09/21/2016 07:16 [facility] COMPARISON: FLUOROSCOPY PORTABLE UP TO 1HR, September 21, 2016, 0:00. INDICATIONS : Total left hip replacement. MEDICAL HISTORY : None. SURGICAL HISTORY : None. ENCOUNTER: Initial ACUITY: 1 day PAIN SCORE: Non-responsive. LOCATION: Left hip. FINDINGS: The patient is post left thoracoplasty. Orthopedic hardware is in excellent position. The alignment i s good. CONCLUSION: 1. Orthopedic hardware in excellent position. Omari De León MD on September 21, 2016 at 15:11 Board Certified Radiologist. This report was verified electronically.
[2016-09-21 16:00] VITALS: BP 114/62; PULSE 67; RESP 16; TEMP 97.2; O2SAT 96
[2016-09-21 17:25] VITALS: O2SAT 98
[2016-09-21] MEDS: VANCOMYCIN INJ 1,000 MG in SODIUM CHLOR 0.9% 250 ML INJ 250 ML IV SCH (17:30)
[2016-09-21 20:25] VITALS: BP 117/66; PULSE 77; RESP 17; TEMP 96.5; O2SAT 95
[2016-09-21] MEDS: ATORVASTATIN 40 MG TAB PO SCH (21:08)
[2016-09-22] VITALS (8 sets, daily range): BP systolic 116–152; BP diastolic 58–75; PULSE 61–97; RESP 16–17; TEMP 96.5–98.1; O2SAT 95–100
[2016-09-22] MEDS: VANCOMYCIN INJ 1,000 MG in SODIUM CHLOR 0.9% 250 ML INJ 250 ML IV SCH (05:45)
--- NOTE | 2016-09-22 06:46 | PD.ORT.PN ---
Subjective Subjective Remarks Resting comfortably with no complaints. She states she is doing extremely well Objective Vitals Vital Signs Date Time Temp Pulse Resp B/P Pulse Ox O2 Delivery O2 Flow Rate FiO2 09/22/16 00:25 97.7 89 17 116/68 95 09/21/16 20:25 96.5 77 17 117/66 95 09/21/16 17:25 98 Nasal Cannula 2.00 09/21/16 16:00 97.2 67 16 114/62 96 09/21/16 14:00 97.0 86 16 117/68 97 09/21/16 13:30 97.8 63 17 144/68 98 Nasal Cannula 2 09/21/16 12:30 56 17 141/65 98 Nasal Cannula 2 09/21/16 11:20 97.6 64 16 145/74 99 Room Air 09/21/16 10:55 97.5 09/21/16 10:48 97.5 09/21/16 10:45 97.5 63 16 141/67 98 Room Air 09/21/16 10:30 63 16 144/69 100 Room Air 09/21/16 10:18 96.6 09/21/16 10:15 63 16 171/73 100 Nasal Cannula 2 09/21/16 10:00 50 14 163/75 100 Nasal Cannula 2 09/21/16 09:45 48 15 163/74 98 Nasal Cannula 2 09/21/16 09:30 48 15 143/63 98 Nasal Cannula 3 09/21/16 09:20 96.7 09/21/16 09:15 96.7 50 15 154/71 100 Nasal Cannula 3 I/O 09/21/16 09/21/16 09/21/16 09/22/16 09/22/16 09/22/16 07:00 15:00 23:00 07:00 15:00 23:00 Intake Total 1410 ml 480 ml Output Total 2035 ml 925 ml 50 ml Balance -625 ml -445 ml -50 ml Intake Oral 50 ml 480 ml IV Total 260 ml Other 1100 ml Output Urine Total 1835 ml 925 ml Drainage Total 50 ml 50 ml Estimated Blood Loss 150 ml # Bowel Movements 0 0 Imaging Last 24 hours Impressions Hip and Pelvis X-Ray 09/21/16 0837 Signed Impressions: Service Date/Time: September 09:36 - CONCLUSION: 1. Status post left total hip replacement with prosthesis in good position. Hector Garcia MD Objective Remarks Left lower extremity: Clean dry dressings intact with drain in place. Mild swelling. Minimal pain with motion of hip. Full range of motion of knee and ankle. Distally intact sensation with good capillary refills. Calf tender with negative Homans sign. Assessment & Plan Assessment and Plan Left total hip arthroplasty anterior approach POD 1 Physical therapy for weightbearing as tolerated twice a day Discontinue drain today Daily dressing changes beginning POD 2 with dry dressings over incision and Xeroform over drain site Lovenox Case management for home health care and preauthorization for Xarelto or Lovenox PATRICE delong and SCDs Plan for discharge tomorrow to home if progressing well with physical therapy Follow-up with Dr. Carpenter or PA in 2 weeks Jorge Luis Hernandez Jr. Sep 22, 2016 06:46
[2016-09-22] MEDS ORDERED: ENOX40IN SQ (06:48)
[2016-09-22 07:10] LABS: HEMATOCRIT 28.9 % (35.0-46.0); REVIEW FLAG FINAL
[2016-09-22] MEDS: POTASSIUM CHLORIDE 20 MEQ CONTROLLED RELEASE TAB PO SCH (07:57)
[2016-09-22] MEDS: TOLTERODINE TARTRATE 2 MG CAP LA PO SCH (07:57)
[2016-09-22] MEDS: ENOXAPARIN SODIUM 40 MG/0.4 ML SYRINGE SQ SCH (07:57)
[2016-09-22] MEDS: LISINOPRIL 20 MG TAB PO SCH (07:57)
[2016-09-22] MEDS: SODIUM CHLORIDE 0.9% FLUSH 5 ML FLUSH IVF SCH ×2 (07:58→20:53)
[2016-09-22] MEDS: CARVEDILOL 12.5 MG TAB PO SCH ×2 (07:58→20:53)
[2016-09-22] MEDS: CYANOCOBALAMIN 1,000 MCG TAB PO SCH (07:58)
[2016-09-22] MEDS: FUROSEMIDE 40 MG TAB PO SCH (07:58)
[2016-09-22] MEDS: LACTATED RINGER'S 1000 ML INJ 1,000 ML IV SCH ×2 (09:37→20:56)
[2016-09-22] MEDS: KETOROLAC TROMETHAMINE 30 MG/ML (IVP) VIAL IV PUSH SCH ×2 (12:15→23:21)
[2016-09-22] MEDS: DOCUSATE SODIUM 100 MG CAP PO SCH (20:53)
[2016-09-22] MEDS: ATORVASTATIN 40 MG TAB PO SCH (20:53)
[2016-09-22] MEDS: ACETAMINOPHEN/HYDROcodone 325 MG/7.5 MG TAB PO PRN (20:53)
[2016-09-23 08:00] VITALS: BP 148/73; PULSE 52; RESP 18; TEMP 96; O2SAT 100
[2016-09-23] MEDS: ACETAMINOPHEN/HYDROcodone 325 MG/7.5 MG TAB PO PRN (08:03)
[2016-09-23] MEDS: DOCUSATE SODIUM 100 MG CAP PO SCH (08:04)
[2016-09-23] MEDS: TOLTERODINE TARTRATE 2 MG CAP LA PO SCH (08:05)
[2016-09-23] MEDS: CARVEDILOL 12.5 MG TAB PO SCH (08:05)
[2016-09-23] MEDS: FUROSEMIDE 40 MG TAB PO SCH (08:05)
[2016-09-23] MEDS: LISINOPRIL 20 MG TAB PO SCH (08:06)
[2016-09-23] MEDS: ENOXAPARIN SODIUM 40 MG/0.4 ML SYRINGE SQ SCH (08:06)
[2016-09-23] MEDS: CYANOCOBALAMIN 1,000 MCG TAB PO SCH (08:06)
[2016-09-23] MEDS: POTASSIUM CHLORIDE 20 MEQ CONTROLLED RELEASE TAB PO SCH (08:06)
[2016-09-23] MEDS: SODIUM CHLORIDE 0.9% FLUSH 5 ML FLUSH IVF SCH (08:07)
[2016-09-23] MEDS: LACTATED RINGER'S 1000 ML INJ 1,000 ML IV SCH (10:37)
[2016-09-23 12:00] VITALS: BP 106/62; PULSE 52; RESP 18; TEMP 96; O2SAT 100
--- NOTE | 2016-09-23 12:35 | PD.ORT.PN ---
Subjective Subjective Remarks no CP/SOB Objective Vitals Vital Signs Date Time Temp Pulse Resp B/P Pulse Ox O2 Delivery O2 Flow Rate FiO2 09/23/16 08:00 96.0 52 18 148/73 100 09/22/16 23:30 96.9 69 16 135/68 95 09/22/16 20:25 96.5 66 16 137/75 100 09/22/16 16:00 96.6 68 16 121/58 97 I/O 09/22/16 09/22/16 09/22/16 09/23/16 09/23/16 09/23/16 07:00 15:00 23:00 07:00 15:00 23:00 Intake Total 240 ml 600 ml 480 ml 480 ml Output Total 575 ml Balance -335 ml 600 ml 480 ml 480 ml Intake Oral 240 ml 600 ml 480 ml 480 ml Output Urine Total 525 ml Drainage Total 50 ml # Voids 4 2 2 # Bowel Movements 0 0 1 0 Result Diagram: 09/22/16 0608 Imaging Last 24 hours Impressions Hip and Pelvis X-Ray 09/21/16 0837 Signed Impressions: Service Date/Time: September 09:36 - CONCLUSION: 1. Status post left total hip replacement with prosthesis in good position. Hector Garcia MD Objective Remarks Left lower extremity: Clean dry dressings intact with drain in place. Mild swelling. Minimal pain with motion of hip. Full range of motion of knee and ankle. Distally intact sensation with good capillary refills. Calf tender with negative Homans sign. Assessment & Plan Assessment and Plan Left total hip arthroplasty anterior approach POD 2 Physical therapy for weightbearing as tolerated twice a day Daily dressing changes beginning POD 2 with dry dressings over incision and Xeroform over drain site Lovenox Case management for home health care and preauthorization for Xarelto or Lovenox PATRICE aburtoe and SCDs DC home today Follow-up with Dr. Carpenter or PA in 2 weeks Daniel Levy Jr., MD Sep 23, 2016 12:35
== END 2016-09-23 12:56 | disposition home health service (06) | DRG 470 ==
LOC: HSDI 09-21 05:09 → N06A 09-21 14:03
PROVIDERS: ADMIT Orthopaedic Surgery Orthopaedic Trauma; ATTEND Orthopaedic Surgery Orthopaedic Trauma
PROC: 0SRB04A Replacement of Left Hip Joint with Ceramic on Polyethylene Synthetic Substitute, Uncemented, Open Approach (ICD-10-PCS; principal; 2016-09-21 06:40)
DX: M16.12 Unilateral primary osteoarthritis, left hip (principal); I10 Essential (primary) hypertension; I25.10 Atherosclerotic heart disease of native coronary artery without angina pectoris; Z95.1 Presence of aortocoronary bypass graft; Z87.891 Personal history of nicotine dependence
CPT/HCPCS: 73501; 73502; 76000; 81001; 85014; 85018; 86850; 86900; 86901; C1776; C9290; J0131; J0690; J1580; J1650; J1885; J2250; J2270; J2370; J2405; J2710; J3010; J3370; J7050; J7120

== ENCOUNTER → 2016-09-14 | Outpatient (CLI) | payer MEDICARE, MEDICAID ==
[~2016-09-14] MED LIST changes: +ACET-929 PO; +ACET650T67 PO; +ASCO100016 PO; +ASPI1TAB69 PO; +CHEL50TA PO; +ENOX40IN SQ; +HYDR-3366 PO; +HYDR-3583 PO; +MULT1TAB46 PO; +MULT1TAB84 PO; +OMEG12002 PO; +OMEG5CAP PO; +TYLE650T9 PO; +VITA10007 PO; +VITA2000 PO; +WALKER WHEELS/F1 MIS; +WALKER/ADULT/FO1 MIS; +XARE10TA PO; +ZINC50TA PO
[2016-09-14 08:56] LABS: AUTOMATED NEUTROPHIL # 4.5 TH/MM3 (1.8-7.7); BASOPHIL % 0.6 % (0.0-2.0); EOSINOPHIL # 0.1 TH/MM3 (0-0.4); EOSINOPHIL % 1.5 % (0.0-4.0); HEMATOCRIT 40.6 % (35.0-46.0); HEMO FLAGS DIFF FINAL; LYMPHOCYTE # 1.6 TH/MM3 (1.0-4.8); MEAN CELL VOLUME 94.6 FL (80.0-100.0); MEAN CORPUSCULAR HEMOGLOBIN 30.8 PG (27.0-34.0); MEAN CORPUSCULAR HGB CONC 32.6 % (32.0-36.0); MONO % 8.4 % (0.0-8.0); NEUT % 66.5 % (16.0-70.0); PLATELET COUNT 246 TH/MM3 (150-450); RED BLOOD COUNT 4.29 MIL/MM3 (4.00-5.30); RED CELL DISTRIBUTION WIDTH 14.7 % (11.6-17.2); WHITE BLOOD COUNT 6.8 TH/MM3 (4.0-11.0)
[2016-09-14 08:59] LABS: BLOOD, URINE NEG (NEG); COMMENT (UR) CULT NOT INDICATED; CULTURE IF INDICATED CULT NOT INDICATED; GLUCOSE,URINE NEG (NEG); HYALINE CAST, URINE 8 /lpf (RARE); KETONE, URINE NEG (NEG); NITRITE,URINE NEG (NEG); SQUAMOUS EPITHELIAL CELL URINE <1 /hpf (0-5); URINE COLOR YELLOW (YELLW/STRAW)
[2016-09-14 09:13] LABS: APTT (PATIENT) 34.1 SEC (24.3-30.1); INTERNATIONAL NORMALIZED RATIO 0.9 RATIO; PROTHROMBIN TIME - PATIENT 10.4 SEC (9.8-11.6)
[2016-09-14 09:21] LABS: BICARBONATE 25.1 MEQ/L (21.0-32.0); POTASSIUM 4.6 MEQ/L (3.5-5.1)
== END ==
LOC: CPRE 08:10
PROVIDERS: ATTEND Orthopaedic Surgery Orthopaedic Trauma
DX: Z01.812 Encounter for preprocedural laboratory examination (principal); M79.609 Pain in unspecified limb; Z79.01 Long term (current) use of anticoagulants; Z13.9 Encounter for screening, unspecified
CPT/HCPCS: 36415; 80048; 81001; 85025; 85610; 85730